=== PATIENT | female | born 1995 | race Two or more races ===

== ENCOUNTER 2023-08-20 19:33 | Emergency (ER) | payer SELFPAY ==
[~2023-08-20] VITALS: Ht 163.8 cm; Wt 66.0 kg
[2023-08-20 19:41] VITALS: BP 134/70; PULSE 65; RESP 16; TEMP 98
== END 2023-08-20 21:00 | disposition left against medical advice (07) ==
LOC: EMS 19:34
DX: M25.552 Pain in left hip (principal); Z53.21 Procedure and treatment not carried out due to patient leaving prior to being seen by health care provider
CPT/HCPCS: 99281; Z7502

== ENCOUNTER 2023-12-14 19:40 | Emergency (ER) | payer MEDICAID ==
[~2023-12-14] VITALS: Ht 162.6 cm; Wt 67.0 kg
[2023-12-14] MEDS ORDERED: LIDOCAINE 5% TRANSDERMAL PATCH TD ONE (21:30)
[2023-12-14] MEDS ORDERED: CYCLOBENZAPRINE HCL 10 MG TABLET PO ONE (21:30)
[2023-12-14] MEDS ORDERED: KETOROLAC TROMETHAMINE 30 MG/ML VIAL IM ONE (21:30)
[2023-12-14 22:03] VITALS: TEMP 97.8
[2023-12-14] MEDS ORDERED: IBUP-1492 PO (22:04)
[2023-12-14] MEDS ORDERED: CYCL-448 PO (22:04)
[2023-12-15 00:16] VITALS: BP 124/62; PULSE 70; RESP 16
== END 2023-12-15 00:17 | disposition home or self-care (01) ==
LOC: EMS 19:42
DX: M54.42 Lumbago with sciatica, left side (principal); Z90.49 Acquired absence of other specified parts of digestive tract; V49.88XA Car occupant (driver) (passenger) injured in other specified transport accidents, initial encounter; Y93.89 Activity, other specified; Y92.89 Other specified places as the place of occurrence of the external cause; Y99.8 Other external cause status
CPT/HCPCS: 99285; 72131; 84703; 96372; J1885